=== PATIENT | male | born 1990 | race Caucasian/White ===

== ENCOUNTER 2018-12-26 04:22 | Emergency (ER) | payer MEDICAID, OTHER ==
[~2018-12-26] VITALS: Ht 182.9 cm; Wt 65.1 kg
[~2018-12-26 04:22] MED LIST: IBUP-1542 PO
[2018-12-26 04:23] VITALS: Ht 182.9 cm; Wt 65.1 kg
[2018-12-26] MEDS ORDERED: ONDANSETRON 4 MG INJ IV STA (04:54)
[2018-12-26] MEDS ORDERED: morphine 4 MG/ML VIAL IV STA (04:54)
[2018-12-26] MEDS ORDERED: KETOROLAC 15 MG INJ IV ONE (05:40)
[2018-12-26 06:02] VITALS: BP 114/69; PULSE 79; RESP 18
== END 2018-12-26 06:13 | disposition home or self-care (01) ==
LOC: E/R 04:22
DX: I88.0 Nonspecific mesenteric lymphadenitis (principal); D72.829 Elevated white blood cell count, unspecified; D64.9 Anemia, unspecified
CPT/HCPCS: 36415; 74176; 76870; 80053; 81003; 83690; 85025; 96374; 96375; J1885; J2270; J2405; Z7502